=== PATIENT | male | born 1995 | race Caucasian/White ===

== ENCOUNTER 2017-06-23 09:03 | Day surgery (SDC) | payer OTHER ==
[~2017-06-23] VITALS: Ht 175.3 cm; Wt 72.1 kg
[2017-06-23] MEDS ORDERED: LIDOCAINE 1% MDV 20ML VIAL SC PRN (09:15)
[2017-06-23] MEDS ORDERED: LR 1,000 ML IV ONE (09:15)
[2017-06-23] MEDS ORDERED: BUPIVACAINE/EPIN 0.25% 30 ML VIAL As Ordered ONE (09:21)
[2017-06-23 09:52] LABS: MEAN CORPUSCULAR HEMOGLOBIN 30.5 pg (27.0-33.0); MEAN CORPUSCULAR HGB CONC 35.1 g/dl (32.0-36.5); MEAN CORPUSCULAR VOLUME 86.9 fl (80.0-96.0); PLATELET COUNT, AUTOMATED 210 10^3/uL (150-450); RED CELL DISTRIBUTION WIDTH 11.9 % (11.5-14.5); WHITE BLOOD COUNT 6.1 10^3/uL (4.0-10.0)
[2017-06-23] MEDS ORDERED: fentaNYL 250 MCG/5 ML INJECTION (J3010) As Ordered ONE (10:41)
[2017-06-23] MEDS ORDERED: ONDANSETRON 4MG/2ML VIAL (J2405) As Ordered ONE (10:41)
[2017-06-23] MEDS ORDERED: MIDAZOLAM INJ 2 MG/2 ML VIAL (J2250) As Ordered ONE (10:41)
[2017-06-23] MEDS ORDERED: ROCURONIUM BROMIDE 50 MG/5 ML VIAL/SYRINGE As Ordered ONE (10:41)
[2017-06-23] MEDS ORDERED: dexameTHASONE 4 MG/ML 1ML VIAL (J1100) As Ordered ONE (10:41)
[2017-06-23] MEDS ORDERED: LIDOCAINE 2% INJ 100 MG/5 ML SDV (FOR ANES.) As Ordered ONE (10:41)
[2017-06-23] MEDS ORDERED: KETOROLAC 60 MG/2 ML VIAL (J1885) As Ordered ONE (10:41)
[2017-06-23] MEDS ORDERED: PROPOFOL 200 MG/20 ML VIAL As Ordered ONE (10:44)
[2017-06-23] MEDS ORDERED: NEOSTIGMINE 10 MG/10 ML VIAL (J2710) As Ordered ONE (10:45)
[2017-06-23] MEDS ORDERED: GLYCOPYRROLATE INJ 0.2 MG/ML 2 ML VIAL As Ordered ONE (10:45)
[2017-06-23] MEDS ORDERED: LR 1,000 ML IV SCH (12:30)
[2017-06-23] MEDS ORDERED: NORCO, ANEXSIA 5/325MG TABLET (HYDROcodone/ACETAMINOPHEN) PO PRN (12:30)
[2017-06-23] MEDS ORDERED: ONDANSETRON 4MG/2ML VIAL (J2405) IV PRN (12:30)
[2017-06-23] MEDS ORDERED: PERCOCET 5MG/325MG TAB PO PRN (12:30)
[2017-06-23] MEDS ORDERED: METOCLOPRAMIDE INJ 10MG/2ML VIAL (J2765) IV PRN (12:30)
[2017-06-23] MEDS ORDERED: fentaNYL 100 MCG/2 ML INJECTION (J3010) IV PRN (12:30)
[2017-06-23 14:50] VITALS: BP 128/79
--- NOTE | 2017-06-23 19:08 | RO ---
DATE OF PROCEDURE: 06/23/2017 PREOPERATIVE DIAGNOSIS: Left inguinal hernia, possible bilateral> POSTOPERATIVE DIAGNOSIS: Left inguinal hernia. PROCEDURE: Robotic-assisted left inguinal hernia repair. SURGEON: Jose R Ace MD [employer] RESEARCH ASSOCIATE: Peyton Arellano ANESTHESIA: General. ESTIMATED BLOOD LOSS: 5 mL COMPLICATIONS: None. INDICATION FOR PROCEDURE: The patient is a 22-year-old male who presents with pain in the right groin. Found to have a right inguinal hernia on ultrasound. Recommendation to proceed with a robotic-assisted left, possible bilateral repair. Risks and benefits of the procedure not limited to but including bleeding, infection, hernia formation, hernia recurrence, damage to surrounding structures, need for further surgery were discussed in detail with the patient and informed was obtained and procedure was planned. OPERATIVE PROCEDURE: The patient brought back to operating room 7 and after sufficient sedation the abdomen was sterilely prepped and draped. Next, a time-out was done to confirm proper patient and proper procedure. Following that, a 5 mm supraumbilical incision made. Veress needle was used to gain access to the abdomen. Once the abdomen was insufflated to 50 mmHg the Veress needle was removed. A 5 mm OptiVu port was used to gain access with a camera. Once the abdomen was entered, another 8 mm robotic port was placed in the right and left midabdomen. The OptiVu port was then replaced with an 8 mm camera port. Abdomen was fully insufflated to 50 mmHg. There is no visible hernia on the right side so we just did the left side. The preperitoneum was entered using curvilinear incision. Cord structures were then carefully identified. The preperitoneal space was dissected free inferiorly, laterally and medially. A large cord lipoma again was encountered. This was all dissected free and dissected laterally and inferiorly removing it from the preperitoneal space but left its blood supply intact. Bard 3-D Max light medium mesh was then placed into the preperitoneal space, sutured to the pubic symphysis using #0 Vicryl suture. The peritoneum was then closed with a running #2-0 V-Loc encompassing the cord lipoma into it. Once all this was completed, the abdomen was desufflated. Skin incisions were closed with #4-0 Vicryl subcutaneous sutures. The abdomen was cleaned and dried. Steri-Strips, 4 x 4 and tape were applied thus ending procedure.
== END 2017-06-23 14:50 | disposition home or self-care (01) ==
LOC: M SDC 09:03
PROVIDERS: ATTEND Surgery
DX: K40.90 Unilateral inguinal hernia, without obstruction or gangrene, not specified as recurrent (principal); Z72.0 Tobacco use
CPT/HCPCS: 36415; 49650; 85027; C1781; J0690; J1100; J1885; J2250; J2405; J2710; J3010